=== PATIENT | male | born 1965 | race Caucasian/White ===

== ENCOUNTER 2017-11-23 10:20 | Emergency (ER) | payer MEDICAID ==
[2017-11-23] MEDS: TETRACAINE 0.5% 4 ML OPH BOTH EYES (11:40)
[2017-11-23] MEDS: ONDANSETRON (ODT) 4 MG TAB ODT (15:40)
[2017-11-23] MEDS: KETOROLAC 60 MG INJ IM (15:41)
[2017-11-23] MEDS: HYDROCODONE/APAP (5/325) TAB PO (15:43)
== END 2017-11-23 16:43 | disposition home or self-care (01) ==
LOC: FTE 10:20
DX: H57.11 Ocular pain, right eye (principal); R51 Headache
CPT/HCPCS: 70450; 70480; 76536; 96372; 99285-25